=== PATIENT | female | born 1960 | race Caucasian/White ===

== ENCOUNTER 2017-07-21 18:24 | Inpatient (IN) | payer MEDICAID ==
--- NOTE | 2017-07-21 19:18 | ED Physician Chart ---
ED Chief Complaint/HPI - Patient Information Date Seen:: 07/21/17 Time Seen:: 19:18 Chief Complaint:: Seizures History of Present Illness:: 57 yo female was found to have seizures on bus and was brought to ER by ambulance. The patient stated that she had seizures since childhood. She did not recall name and dose of anti-seizure medication. The patient had one episode of tremor of whole body, loss of consciousness for 1 minute at ER Allergies:: Allergies Allergy/AdvReac Type Severity Reaction Status Date / Time UNOBTN - Unobtainable Allergy Verified 07/21/17 18:50 Vitals:: Vital Signs - 8 hr 07/21/17 18:51 Temp 100.1 F HR 106 RR 16 BP 154/83 O2 Sat % 97 ED Past Medical History - Past Medical History Past Medical History: Seizures Social History: Non Smoker, No Alcohol, No Drug Use, Lives Alone Surgical History: None Family Medical History - Family Member Mother Ethnicity: ED Septic Shock - <6hrs of presentation: Vital Signs: Vital Signs - 8 hr 07/21/17 18:51 Temp 100.1 F HR 106 RR 16 BP 154/83 O2 Sat % 97
[2017-07-21 19:44] LABS: HEMATOCRIT 38.5 % (41.0-60); HEMOGLOBIN 13.1 gm/dL (12-16); LYMPHOCYTE ABSOLUTE 0.6 Th/cmm (1.5-3.0); MANUAL DIFF REQUIRED? YES; MEAN CELL VOLUME 91.8 fl (81-100); MEAN CORPUSCULAR HEMOGLOBIN 31.1 pg (27.0-31.0); MEAN CORPUSCULAR HGB CONC 33.9 pg (28.0-36.0); MONOCYTE ABSOLUTE 0.3 Th/cmm (0.3-1.0); NEUTROPHILE ABSOLUTE 9.9 Th/cmm (1.8-8.0); PLATELET COUNT 264 Th/cmm (150-400); WHITE BLOOD COUNT 10.8 Th/cmm (4.8-10.8)
[2017-07-21 20:01] LABS: ALBUMIN 4.5 gm/dL (3.7-5.3); ALKALINE PHOSPHATASE 132 U/L (34-104); ANION GAP 10.1 (7.0-16.0); BILIRUBIN,TOTAL 0.2 mg/dL (0.3-1.0); BUN - UREA NITROGEN 14 mg/dL (7-25); CALCIUM SERUM 9.1 mg/dL (8.6-10.3); CARBON DIOXIDE 25.9 mEq/L (21.0-31.0); CHLORIDE 100 mEq/L (98-107); CREATININE - SERUM 0.7 mg/dL (0.6-1.2); GFR AFRICAN-AMERICAN > 60.0 ml/min (>90); GFR NON AFRICAN-AMERICAN > 60.0 ml/min; GLUCOSE 117 mg/dL (70-105); SGOT 19 U/L (13-39); SGPT/ALT 12 U/L (7-52); SODIUM SERUM 132 mEq/L (136-145); TOTAL PROTEIN,SERUM 6.8 gm/dL (6.0-8.3)
[2017-07-21] MEDS ORDERED: Sodium Chloride 0.9% 1,000 ML IV ONE (20:31)
[2017-07-21 21:07] LABS: URINE MICROSCOPIC INDICATED? YES; URINE SOURCE RANDOM
[2017-07-21 21:16] LABS: URINE BILIRUBIN NEGATIVE (NEGATIVE); URINE BLOOD TRACE (NEGATIVE); URINE GLUCOSE (UA) NEGATIVE (NEGATIVE); URINE KETONE NEGATIVE (NEGATIVE); URINE LEUKOCYTE ESTERASE NEGATIVE (NEGATIVE); URINE NITRATE NEGATIVE (NEGATIVE); URINE PROTEIN NEGATIVE (NEGATIVE); URINE UROBILINOGEN 0.2 E.U./dL (0.2 - 1.0)
[2017-07-21 21:37] LABS: URINE CLARITY CLEAR (CLEAR); URINE COLOR YELLOW
[2017-07-21 21:41] LABS: URINE BACTERIA NONE SEEN /hpf (NONE SEEN); URINE EPITHELIAL CELLS NONE SEEN /lpf (FEW); URINE RBC NONE SEEN /hpf (0-5); URINE WBC NONE SEEN /hpf (0-5)
[2017-07-22 04:17] VITALS: BP 129/86
[2017-07-22 07:25] LABS: % BASOPHILS 0.6 % (0.0-2.0); % EOSINOPHILS 0.4 % (0.0-5.0); % LYMPHOCYTES 12.5 % (20.0-50.0); % MONOCYTES 5.1 % (2.0-10.0); % NEUTROPHILS 81.4 % (40.0-80.0); HEMATOCRIT 36.7 % (41.0-60); HEMOGLOBIN 12.9 gm/dL (12-16); MEAN CELL VOLUME 90.7 fl (81-100); MEAN CORPUSCULAR HEMOGLOBIN 31.9 pg (27.0-31.0); MEAN CORPUSCULAR HGB CONC 35.1 pg (28.0-36.0); MEAN PLATELET VOLUME 6.9 fl; MONOCYTE ABSOLUTE 0.4 Th/cmm (0.3-1.0); NEUTROPHILE ABSOLUTE 6.3 Th/cmm (1.8-8.0); PLATELET COUNT 267 Th/cmm (150-400); RED BLOOD COUNT 4.05 Mil/cmm (3.80-5.10)
[2017-07-22 07:28] LABS: WHITE BLOOD COUNT 7.7 Th/cmm (4.8-10.8)
[2017-07-22 07:49] LABS: BUN - UREA NITROGEN 9 mg/dL (7-25); CALCIUM SERUM 8.7 mg/dL (8.6-10.3); CARBON DIOXIDE 28.5 mEq/L (21.0-31.0); CHLORIDE 100 mEq/L (98-107); CREATININE - SERUM 0.6 mg/dL (0.6-1.2); GFR AFRICAN-AMERICAN > 60.0 ml/min (>90); GFR NON AFRICAN-AMERICAN > 60.0 ml/min; GLUCOSE 112 mg/dL (70-105); POTASSIUM SERUM 3.5 mEq/L (3.5-5.1); SODIUM SERUM 134 mEq/L (136-145)
--- NOTE | 2017-07-22 07:52 | Consultation ---
DATE OF CONSULTATION: 07/22/2017 NEUROLOGY CONSULTATION HISTORY OF PRESENT ILLNESS: The patient is a 57-year-old. The patient had seizure while she was on the bus. The patient was brought here. The patient had seizure since childhood. She is on medication, follows with a neurologist, and she does not know the name of the medication. At the moment, the patient is awake, alert, no other problems. No headache. No tongue biting. PAST MEDICAL HISTORY: Seizure. SOCIAL HISTORY: Does not smoke or drink. No drugs. REVIEW OF SYSTEMS: On direct questioning from the patient, no headache. Speech is okay. Moving all extremities. PHYSICAL EXAMINATION: VITAL SIGNS: Temperature 98.4, blood pressure 150/80, pulse is 92. NECK: Supple, no bruits. HEART: Sounds S1 and S2. LUNGS: Clear. NEUROLOGIC: The patient is awake, alert. Speech is normal. She knew what day, what month, what year. CRANIAL: Pupils reactive to light. Full eye movement. No nystagmus. No facial weakness. MOTOR: She will lift both arms up. She will lift both legs up. Reflexes are about 1-2+. INVESTIGATIONS: WBC 7.7, hemoglobin 12.9, platelets normal. Sodium 132. LABORATORY DATA: Carbamazepine is 8.7, so I suspect she probably takes Tegretol. ASSESSMENT: Seizures. PLAN: The patient at this time will continue with the carbamazepine. Level seems to be okay. I am also going to add in Keppra. JOB# [id number]
--- NOTE | 2017-07-22 08:16 | Diagnostic Imaging Report ---
Head CT without intravenous contrast Indication: Seizures Comparison: None Technique: Axial images were obtained from the vertex to the skull base without IV contrast. Coronal reconstructions were made. Total DLP: [id number], [id number] FINDINGS: Images of the brain obtained without contrast demonstrate no acute hemorrhage. No mass lesions identified. The ventricles and basal cisterns are patent. Atrophy is noted. The headley-white matter differentiation is preserved. There is no mass effect or midline shift. No skull fractures identified. There is a 2 cm calcified nodule of the frontal scalp. The visualized paranasal sinuses demonstrate mild mucosal thickening. IMPRESSION: No evidence of acute intracranial hemorrhage Atrophy. 2 cm nodule right frontal scalp, possibly a sebaceous cyst. Mucosal thickening of the paranasal sinuses, greatest within the right maxillary sinus.
--- NOTE | 2017-07-22 08:49 | History & Physical Pre-OP ---
DATE OF SERVICE: CHIEF COMPLAINT: Seizure activity. HISTORY OF PRESENT ILLNESS: This is a 57-year-old lady with a known seizure disorder since she was born per the patient's history. She has had seizures throughout her life, which sound to be petit like. She sees a neurologist as an outpatient in the [facility]. She states that in the last 6-12 months, she has been having more recurrent brief seizures lasting for seconds to minutes and they are as frequent as once every month to every 2-3 months. She apparently has been on Tegretol for a long time with no changes being made in her dosage for a long time. She apparently had a seizure yesterday while riding the bus. She was brought into the ER where while in the ER, she was noted to have a seizure lasting about a minute that was described as a whole body tremors, but had no incontinence or no tongue biting. She was admitted to the tele [facility] and has been evaluated by Neurology. The patient feels okay at this time with no further seizures since admission. PAST MEDICAL HISTORY: As noted above. Actually as a teenager, she had diagnostics done, but she does not remember if there was anything noted and she does not remember the diagnostic results or causes of the seizure. Of note, her Tegretol level was therapeutic at 8.7. PAST SURGICAL HISTORY: None. FAMILY HISTORY: Noncontributory. SOCIAL HISTORY: No tobacco, ETOH, or illicit drug usage. ALLERGIES: NKDA. OUTPATIENT MEDICATIONS: Carbamazepine 200 mg b.i.d. REVIEW OF SYSTEMS: CONSTITUTIONAL: No fever or chills. No recent weight loss. CARDIAC: No chest pain or palpitations. PULMONARY: No cough or phlegm production. GASTROINTESTINAL: No bowel habit changes. GENITOURINARY: No bladder habit changes including no urinary incontinence or no loss of urine during the attack. NEUROLOGIC: Please refer to the HPI. PHYSICAL EXAMINATION: VITAL SIGNS: Temperature 97.8, pulse 86, respirations 19, BP 130/80, and satting 98% on room air. GENERAL: Well developed, well nourished, not in acute distress. Awake, alert, and oriented x3. HEAD AND NECK: Normocephalic, atraumatic. Pupils reactive to light. Extraocular movements are intact. Oropharynx moist and clear. CARDIOVASCULAR: Regular rate and rhythm without any murmurs. LUNGS: Clear to auscultation bilaterally. ABDOMEN: Soft, supple, nontender, nondistended, normoactive bowel sounds in lower extremities. No pedal edema. LABORATORY DATA: On admission, white count 10.8, H and H 13/38 with a platelet count of 264. Sodium 132, potassium 4.0, chloride 100, CO2 25, BUN 14, creatinine 0.7, glucose 117, and total bilirubin 0.2. LFTs were essentially within normal limits. UA was essentially within normal limits, carbamazepine level 8.7. DIAGNOSTICS: None. IMPRESSION: 1. History of seizures with frequent breakthrough seizures. 2. Mild hyponatremia. PLAN: The patient has been admitted to the medical floor where she has been given Ativan p.r.n. and IV fluids. The patient has been seen by Neurology who has started Keppra 500 mg b.i.d. and is agreeable for the patient to be discharged on Tegretol and Keppra. I advised the patient to follow with her primary care doctor and especially with her neurologist within a week for further management and care. JOB# [id number] [email or web address]
[2017-07-22] MEDS ORDERED: Pneumococcal Vaccine 0.5 mL Vial IM ONE (09:23)
[2017-07-22] MEDS ORDERED: Influenza Vaccine 0.5 mL Syr IM ONE (09:23)
--- NOTE | 2017-07-24 11:02 | Discharge Summary ---
DATE OF DISCHARGE: 07/22/2017 DATE OF DISCHARGE: 07/22/2017. ADMITTING DIAGNOSES: Breakthrough seizure activity and mild hyponatremia. SECONDARY DIAGNOSIS: Long standing history of seizure disorder. DISCHARGE DIAGNOSIS: Breakthrough seizure disorder, stable. CONSULTANTS: Dr. Nava. MAJOR PROCEDURES: None. DISCHARGE MEDICATIONS: Keppra 500 mg b.i.d. and Tegretol 200 mg b.i.d. BRIEF HOSPITAL COURSE: This is a 57-year-old lady with a longstanding history of seizures since , who had a seizure yesterday while riding a bus. The seizures were described as a somewhat like petite mal where she just loses some consciousness, but generally does not have tremors. She was brought into the ER where she had a one-minute seizure with body tremors and loss of consciousness. This was stabilized. The patient was admitted to Med/Surg where she received Ativan p.r.n. and was kept on her Tegretol as scheduled. The Tegretol level was 8.7, but nevertheless she was also placed on Keppra 500 mg b.i.d. per neuro recommendation. Since being admitted, she has had no seizure activity or no aura of possible seizures. CONDITION ON DISCHARGE: Stable. DISPOSITION: The patient will be discharged home to self-care. I advised the patient to follow up with her primary care doctor within 2-3 days and to go back to her outpatient neurologist within a week to which she is agreeable. JOB# [id number]
== END 2017-07-22 11:20 | disposition home or self-care (01) | DRG 53 ==
LOC: ER 18:24 → TELE 23:38
PROVIDERS: ADMIT Internal Medicine; ATTEND Internal Medicine
DX: G40.909 Epilepsy, unspecified, not intractable, without status epilepticus (principal); E87.1 Hypo-osmolality and hyponatremia
CPT/HCPCS: 36415-UA; 70450-TC; 80048-TC; 80053-TC; 80156-TC; 81001-TC; 84443-TC; 85007-TC; 85025-TC; 85027-TC; J2060; J7030; Z7610